=== PATIENT | female | born 1985 | race Caucasian/White ===

== ENCOUNTER 2017-01-22 06:38 | Inpatient (IN) | payer MEDICAID ==
[2017-01-22] MEDS ORDERED: PENICILLIN G POTASSIUM 5,000,000 UNIT in DEXTROSE 5%-WATER 100 ML IV ONE (07:02)
[2017-01-22] MEDS ORDERED: PENICILLIN G-K 5 MILLION UNIT VIAL ONE ×2 (07:03→10:40)
[2017-01-22 07:32] LABS: ABSOLUTE BASOPHILS # (AUTO) 0.1 10^3/uL (0.0-0.2); ABSOLUTE EOSINOPHILS # (AUTO) 0.1 10^3/uL (0.0-0.6); ABSOLUTE LYMPHOCYTES (AUTO) 1.4 10^3/uL (0.5-4.7); ABSOLUTE MONOCYTES (AUTO) 0.5 10^3/uL (0.1-1.4); ABSOLUTE NEUT (AUTO) 8.8 10^3/uL (1.7-8.2); BASOPHILS % (AUTO) 0.8 % (0-2); EOSINOPHILS % (AUTO) 0.9 % (0-6); HEMATOCRIT 35.7 % (36.0-47.0); HEMOGLOBIN 11.9 g/dL (12.0-15.5); MEAN CORPUSCULAR HEMOGLOBIN 29.3 pg (27.0-33.4); MEAN CORPUSCULAR HGB CONC 33.2 g/dL (32.0-36.0); MEAN CORPUSCULAR VOLUME 88 fl (80-97); MONOCYTES % (AUTO) 4.3 % (3-13); RED BLOOD COUNT 4.05 10^6/uL (3.72-5.28); RED CELL DISTRIBUTION WIDTH 14.2 % (11.5-14.0); WHITE BLOOD COUNT 10.9 10^3/uL (4.0-10.5)
[2017-01-22] MEDS ORDERED: EPHEDRINE SULFATE INJ 50 MG/1 ML AMPULE ONE (07:33)
[2017-01-22] MEDS ORDERED: MISOPROSTOL 0.2 MG TABLET ONE (07:33)
[2017-01-22] MEDS ORDERED: LIDOCAINE 1% INJ-PF (10 MG/ML) 30 ML SDV ONE (07:34)
[2017-01-22] MEDS ORDERED: FENTANYL/BUPIVACAINE/NS/PF 200 MCG/100 ML RTUINJ EPI ONE (07:34)
[2017-01-22] MEDS ORDERED: OXYTOCIN/NORMAL SALINE 20 UNIT/1,000 ML RTUINJ ONE (07:34)
[2017-01-22] MEDS ORDERED: BUPIVACAINE HCL 0.25 % INJ/PF (2.5 MG/1 ML) 30 ML VIAL ONE (07:34)
[2017-01-22 08:07] LABS: APPEARANCE,URINE CLOUDY; BILIRUBIN,URINE NEGATIVE (NEGATIVE); GLUCOSE, URINE NEGATIVE (NEGATIVE); KETONES,URINE NEGATIVE (NEGATIVE); LEUKOCYTE ESTERASE,URINE SMALL (NEGATIVE); NITRITE,URINE NEGATIVE (NEGATIVE); PROTEIN,URINE NEGATIVE (NEGATIVE); URINE SPECIFIC GRAVITY 1.012; UROBILINOGEN,URINE NEGATIVE mg/dL (<2.0)
[2017-01-22 08:22] LABS: URINE BARBITURATES SCREEN NEGATIVE; URINE METHADONE SCREEN NEGATIVE; URINE OPIATES LOW NEGATIVE; URINE PHENCYCLIDINE SCREEN NEGATIVE
[2017-01-22] MEDS ORDERED: BUPIVACAINE HCL 0.25 % INJ/PF (2.5 MG/1 ML) 30 ML VIAL INFIL ONE (09:01)
[2017-01-22] MEDS ORDERED: DIPHENHYDRAMINE HCL 50 MG/ML VIAL IV PRN (09:01)
[2017-01-22] MEDS ORDERED: BENZOIN/ALOE VERA/STORAX/TOLU TINCTURE 60 ML TP PRN (09:01)
[2017-01-22] MEDS ORDERED: RINGERS SOLUTION,LACTATED 1,000 ML IV PRN (09:01)
[2017-01-22] MEDS ORDERED: EPHEDRINE SULFATE INJ 50 MG/1 ML AMPULE IV ONE (09:01)
[2017-01-22] MEDS ORDERED: EPHEDRINE SULFATE INJ 50 MG/1 ML AMPULE IV PRN (09:01)
[2017-01-22] MEDS ORDERED: FENTANYL/BUPIVACAINE/NS/PF 200 MCG/100 ML RTUINJ EPI PRN (09:01)
[2017-01-22] MEDS: RINGERS SOLUTION,LACTATED 1,000 ML IV PRN ×4 (09:07→09:21)
[2017-01-22] MEDS ORDERED: PENICILLIN G POTASSIUM 2,500,000 UNIT in DEXTROSE 5%-WATER 50 ML IV SCH (11:00)
--- NOTE | 2017-01-22 12:16 | L&D Progress Notes ---
PROGRESS NOTES Datetime Report Generated by CPN: 01/22/2017 12:16 PROGRESS NOTE Impression: Normal Progression of Labor Procedures: Artificial ROM; Sterile Vag Exam Plan: Continue Present Management Informed Consent Obtained: Vaginal Delivery Vital Signs : Reviewed Comment: AROM, clear Anticiapte VAGINAL EXAM Dilatation: 9 Dilatation: 5 Effacement: 90 Effacement: 90 Station: 0 Station: -1 Contractions: 2-4 min Contractions: 3-5 MEMBRANES Membranes: Ruptured Membranes: Intact Amniotic Fluid Color: Clear FETUS A FHR - Baseline: 135 Monitoring: External US Variability: Moderate 6-25bpm Accelerations: 15X15 Decelerations: None FHR Category: Category I Estimated Weight (gm): 3800 Presentation: Vertex SIGNATURE SIGNATURE: [id number] Assignment: Tamiko Wilder MD Signature: with User ID: [email or web address] : with User ID: [email or web address]
[2017-01-22] MEDS ORDERED: DIPHENHYDRAMINE HCL 50 MG/ML VIAL ONE (12:54)
[2017-01-22] MEDS ORDERED: DIPH/PERTUSS(ACELL)/TETANUS VAC/PF 0.5 ML SYR (>=10YO) IM PRN (13:46)
[2017-01-22] MEDS ORDERED: MEASLES,MUMPS&RUBELLA VACC/PF 0.5 ML VIAL SUBCUT PRN (13:46)
[2017-01-22] MEDS ORDERED: ACETAMINOPHEN WITH CODEINE #3 TABLET PO PRN (13:46)
[2017-01-22] MEDS ORDERED: DIBUCAINE 1% OINTMENT 28 GM TP PRN (13:46)
[2017-01-22] MEDS ORDERED: BENZOCAINE/MENTHOL AEROSOL SPRAY 56 ML TOP PRN (13:46)
[2017-01-22] MEDS ORDERED: ZOLPIDEM TARTRATE 5 MG TABLET PO PRN (13:46)
[2017-01-22] MEDS ORDERED: OXYTOCIN/NORMAL SALINE 20 UNIT/1,000 ML RTUINJ IV PRN (13:46)
--- NOTE | 2017-01-22 15:55 | Admission Physical ---
Datetime Report Generated by CPN: 01/22/2017 15:55 CURRENT ADMISSION Hx Assessment: The History has been Reviewed and is Current Chief Complaint: Uterine Contractions Indication for Induction: Not Applicable Admit Plan: Admit to Unit; Initiate Labor Protocol ALLERGIES Medication Allergies: No Medication Allergies: No Known Allergies (01/22/2017) Medication Allergies: No Known Allergies (03/01/2016) Latex: No Latex Allergies Food Allergies: none Environmental Allergies: none OBSTETRICAL HISTORY EDC: 01/30/2017 00:00 : 4 Para: 3 Term: 3 : 0 SAB: 0 IAB: 0 Ectopic: 0 Livin Cesareans: 0 VBACs: 0 Multiple Births: 0 Gestational Diabetes: No Rh Sensitization: No Incompetent Cervix: No CHRIS: No Infertility: No ART Treatment: No Uterine Anomaly: No IUGR: No Hx Previous C/S: No Macrosomia: No Hx Loss/Stillborn: No PIH: No Hx : No Placenta Previa/Abruption: No Depression/PP Depression: No PTL/PROM: No Post Hemorrhage: No Current Procedures: Ultrasound; NST Obstetrical History Comments: G1: 2005 female G2: 2007 female G3: 2015 male G4: Current SEE RECORDS Alcohol: No Marijuana : No Cocaine: No Other Illicit Drugs: No Cigarettes: Current Everyday Smoker. [id number] Cigarette Frequency: > 10 per day Cigarette Comments: 1 ppd MEDICAL HISTORY Diabetes: No Blood Transfusion: No Pulmonary Disease (Asthma, TB): No Breast Disease: No Hypertension: No Insurance Operations Rep Surgery: No Heart Disease: No Hosp/Surgery: Yes Autoimmune Disorder: No Anesthetic Complications: No Kidney Disease: No Abnormal Pap Smear: No Neuro/Epilepsy: No Psychiatric Disorders: No Other Medical Diseases: No Hepatitis/Liver Disease: No Significant Family History: No Varicosities/Phlebitis: No Trauma/Violence : No Thyroid Dysfunction: No Medical History Comments: childbirth INFECTIOUS HISTORY Gonorrhea: No Genital Herpes: No Chlamydia: No Tuberculosis: No Syphilis: No Hepatitis: No HIV/AIDS Exposure: No Rash or Viral Illness: No HPV: No PHYSICAL EXAM General: Normal HEENT: Normal Neurologic: Normal Thyroid: Deferred Heart: Normal Lungs: Normal Breast: Normal Back: Normal Abdomen: Normal Genitourinary Exam: Normal Extremities: Normal DTRs: Normal Pelvic Type: Adequate Physical Exam Comments: pelvis proven 8lbs 1 oz Vital Signs: Reviewed VAGINAL EXAM Dilatation: 9 Dilatation: 5 Effacement: 90 Effacement: 90 Station: 0 Station: -1 Contraction Comments: 2-4 min Contraction Comments: 3-5 MEMBRANES Membranes: Ruptured Membranes: Intact Amniotic Fluid Color: Clear FETUS A EGA: 38.6 Monitoring: External US FHR- Baseline: 150 Variability: Moderate 6-25bpm Accelerations: 15X15 Decelerations: None FHR Category: Category I Estimated Weight (gm): 3800 Presentation: Vertex Admit Comment: Pt presents in labor, SVE as above GBS +, pnc limited care, smoker, closely spaced pregnancies. Admit Anticipate pt may have epidural prn PLANS FOR LABOR AND DELIVERY Labor and Delivery: None Pain Management: Epidural Feeding Preference: Breast Circumcision: N/A INFORMED CONSENT Informed Consent Obtained: Vaginal Delivery Assignment: Tamiko Wilder MD Signature: with User ID: [email or web address] : with User ID: [email or web address]
[2017-01-22] MEDS: IBUPROFEN 800 MG TABLET PO SCH ×2 (17:09→21:18)
[2017-01-22] MEDS: FERROUS SULFATE 325 MG TABLET PO SCH (17:17)
[2017-01-22] MEDS ORDERED: DOCUSATE SODIUM 100 MG CAPSULE PO SCH (18:00)
--- NOTE | 2017-01-22 18:34 | Delivery Summary ---
Del Sum A-C Datetime Report Generated by CPN: 01/22/2017 18:34 DELIVERY PERSONNEL DELIVERY PERSONNEL: [id number] Delivery Doctor:: Joyce Garcias CNM Nurse Analyst [employer] Certified:: Joyce Garcias CNM Labor and Delivery Nurse:: Deep Fowler RNdigital asset specialist Nurse:: SHIN Pinon Dining Room Host/Hostess/DIRECTOR DIVERSITY: Cally ChavezCORBY chowdary II MATERNAL INFORMATION Delivery Anesthesia: Epidural Medications After Delivery: Pitocin Bolus-Please Comment; Pitocin Drip 20 Units/1000ml NSS Estimated Blood Loss (ml): 250 Maternal Complications: None Provider Comments: of vaiable female over intact perineum, head delivered, loose nuchal noted, reduced, shoulders and body delivered without difficulty. Infant with spontaneous cry and respirations to maternal abdomen, cord clamped X2, infant cut free after 2 min delay, spontaneous delivery of intact placenta, via avitia mechanism, appears intact 3 VC, hemostasis acheived with external fundal massage and IV pitocin, routine pp care, mother and infant in stable condition. LABOR SUMMARY EDC: 01/30/2017 00:00 No. Babies in Womb: 1 Attempted: No Labor Anesthesia: Epidural LABOR INFORMATION Reason for Induction: Not Applicable Onset of Labor: 01/22/2017 04:00 Complete Dilatation: 01/22/2017 13:16 Oxytocin: N/A Group B Beta Strep: Positive Antibiotics # of Doses: 2 Antibiotics Time of Last Dose: 1048 Name of Antibiotic Given: PCN G Steroids Given: None Reason Steroids Not Administered: Not Applicable MEMBRANES Membranes Rupture Method: Artificial Rupture of Membranes: 01/22/2017 12:27 Length of Rupture (hr): 0.93 Amniotic Fluid Color: Clear Amniotic Fluid Amount: Moderate Amniotic Fluid Odor: Normal STAGES OF LABOR Stage 1 hr: 9 Stage 1 min: 16 Stage 2 hr: 0 Stage 2 min: 7 Stage 3 hr: 0 Stage 3 min: 5 Total Time in Labor hr: 9 Total Time in Labor min: 28 VAGINAL DELIVERY Episiotomy: None Laceration Extension: N/A Laceration Type: None Laceration Repair: Not Applicable Laceration Repair Note: n/a Sponge Count Correct: N/A Sharps Count Correct: N/A CSECTION DELIVERY Primary Indication: N/A Secondary Indication: N/A CSection Incidence: N/A Labor: N/A Elective: N/A CSection Incision: N/A BABY A INFORMATION Delivery Date/Time: 01/22/2017 13:23 Method of Delivery: Vaginal Born in Route : No : N/A Forceps: N/A Vacuum Extraction: N/A Shoulder Dystocia : No PRESENTATION/POSITION BABY A Presentation: Cephalic Cephalic Presentation: Vertex Vertex Position: Right Occipital Anterior Breech Presentation: N/A PLACENTA INFORMATION BABY A Placenta Delivery Time : 01/22/2017 13:28 Placenta Method of Delivery: Spontaneous Placenta Status: Delivered SCORES BABY A Heart Rate 1 min: >100 bpm Resp Effort 1 min: Good Cry Reflex Irritability 1 min: Cough or Sneeze or Pulls Away Muscle Tone 1 min: Active Motion Color 1 min: Blue/Pale Resuscitation Effort 1 min: Tactile Stimulation SCORE 1 MIN: 8 Heart Rate 5 min: >100 bpm Resp Effort 5 min: Good Cry Reflex Irritability 5 min: Cough or Sneeze or Pulls Away Muscle Tone 5 min: Active Motion Color 5 min: Body Lasana, Extremities Blue Resuscitation Effort 5 min: N/A SCORE 5 MIN: 9 INFORMATION BABY A Gestational Age at Delivery: 38.6 Gestational Status: Early Term- 37- 38.6 Weeks Outcome : Liveborn Infant Condition : Stable Sex: Female IDENTIFICATION BABY A Verification Date/Time: 01/22/2017 14:05 ID Band Number: [id number] Mother's Name Verified: Yes RN Verifying : C Fowler RN Additional Verifying Personnel: D [facility] RNC WEIGHT/LENGTH BABY A Birthweight (gm): 3410 Weight (lb): 7 Weight (oz): 8 Infant Length (in): 19.50 Length (cm): 49.53 CORD INFORMATION BABY A No. Cord Vessels: 3 Nuchal Cord : Around Neck x1, Loose Cord Blood Taken: Yes-For Storage (Mom's Blood type +) Suction: None ASSESSMENT BABY A Infant Complications: None Physical Findings at Delivery: Within Normal Limits Respirations: Appears Normal Skin to Skin: Yes Jointer [employer]/ALS Called : No Care By: D. Bellevance Transferred To: Remains with Mother BABY B INFORMATION : N/A SIGNATURES Assignment: Tamiko Wilder MD Signature: with User ID: Marlene : with User ID: [email or web address]
[2017-01-22] MEDS: ACETAMINOPHEN WITH CODEINE #3 TABLET PO PRN (21:19)
[2017-01-23] MEDS: ACETAMINOPHEN WITH CODEINE #3 TABLET PO PRN ×4 (01:28→21:29)
[2017-01-23] MEDS: IBUPROFEN 800 MG TABLET PO SCH ×3 (05:19→21:28)
[2017-01-23 07:41] LABS: HEMATOCRIT 29.3 % (36.0-47.0); HEMOGLOBIN 10.4 g/dL (12.0-15.5); HGB HCT DIFFERENCE 1.9; MEAN CORPUSCULAR HEMOGLOBIN 30.7 pg (27.0-33.4); MEAN CORPUSCULAR HGB CONC 35.4 g/dL (32.0-36.0); MEAN CORPUSCULAR VOLUME 87 fl (80-97); RED BLOOD COUNT 3.38 10^6/uL (3.72-5.28); RED CELL DISTRIBUTION WIDTH 14.1 % (11.5-14.0); WHITE BLOOD COUNT 10.9 10^3/uL (4.0-10.5)
[2017-01-23] MEDS ORDERED: DIPHENHYDRAMINE HCL 25 MG CAPSULE ONE (10:05)
[2017-01-23] MEDS: SENNOSIDES/DOCUSATE 8.6-50 MG 1 EACH TABLET PO SCH (10:06)
[2017-01-23] MEDS: PRENATAL VITAMIN W-O CA NO5/FE FUMARATE/FA CAPSULE PO SCH (10:07)
[2017-01-23] MEDS: FERROUS SULFATE 325 MG TABLET PO SCH ×2 (10:07→18:40)
[2017-01-23] MEDS ORDERED: DIPHENHYDRAMINE HCL 25 MG CAPSULE PO PRN (10:14)
[2017-01-23] MEDS ORDERED: MEASLES,MUMPS&RUBELLA VACC/PF 0.5 ML VIAL SUBCUT PRN (10:30)
[2017-01-23] MEDS ORDERED: DIPH/PERTUSS(ACELL)/TETANUS VAC/PF 0.5 ML SYR (>=10YO) IM PRN (10:30)
--- NOTE | 2017-01-23 13:42 | PDOC PROGRESS REPORT ---
Subjective-OB Subjective: Post Delivery Day: 31 year old. Denies any needs at this time Physical Exam (OB) Vital Signs: Temp Pulse Resp BP Pulse Ox 97.5 F 81 14 99/68 L 96 01/23/17 07:38 01/23/17 07:38 01/23/17 07:38 01/23/17 07:38 01/23/17 07:38 Intake & Output 01/22/17 01/23/17 01/24/17 06:59 06:59 06:59 Weight 81.35 kg - Lochia Lochia Amount: Scant < 10 ml Lochia Color: Rubra/Red - Abdomen Description: Soft, Round Hernia Present: No Bowel Sounds: Normoactive Flatus Presence: Present Stool: No Fundal Description: Firm, Midline Fundal Height: u/u - u/2 Objective-Diagnostic Laboratory: 01/23/17 07:12 01/23/17 07:12 WBC 10.9 H RBC 3.38 L Hgb 10.4 L Hct 29.3 L MCV 87 MCH 30.7 MCHC 35.4 RDW 14.1 H Plt Count 178
[2017-01-24] MEDS: IBUPROFEN 800 MG TABLET PO SCH ×2 (05:20→13:14)
[2017-01-24] MEDS: ACETAMINOPHEN WITH CODEINE #3 TABLET PO PRN (08:36)
[2017-01-24 08:59] VITALS: BP 125/83
--- NOTE | 2017-01-24 09:27 | PDOC DISCHARGE SUMMARY ---
Final Diagnosis Discharge Date: 01/24/17 - Final Diagnosis (1) Closely-spaced pregnancies Is this a current diagnosis for this admission?: Yes (2) Late onset care Is this a current diagnosis for this admission?: Yes (3) Positive GBS test Is this a current diagnosis for this admission?: Yes (4) Vaginal delivery Is this a current diagnosis for this admission?: Yes Discharge Data - Discharge Medication Home Medications: Pnv W-O Ca No5/Fe Fumarate/FA [-U Multiple Vitamin Capsule] 1 cap PO DAILY #0 capsule 03/03/16 Cyclobenzaprine HCl [Flexeril 10 mg Tablet] 1 tab PO PRN PRN 01/22/17 Reason(s) for Admission: Onset of Labor Procedures: NST Intrapartum Procedure(s): Spontaneous Vaginal Delivery - Diagnosis Test Laboratory: Temp Pulse Resp BP Pulse Ox 97.7 F 52 L 16 125/83 100 01/24/17 08:01 01/24/17 08:01 01/24/17 08:01 01/24/17 08:01 01/24/17 08:01 01/22/17 01/22/17 01/23/17 07:00 07:20 07:12 RBC 4.05 3.38 L Hgb 11.9 L 10.4 L Hct 35.7 L 29.3 L Urine Opiates Screen NEGATIVE - Discharge information/Instructions Discharge Activity: Balance Activity w/Rest, Pelvic Rest Discharge Diet: Regular Disposition: HOME, SELF-CARE Follow up with: [facility] in: 4, Weeks
[2017-01-24] MEDS: PRENATAL VITAMIN W-O CA NO5/FE FUMARATE/FA CAPSULE PO SCH (09:32)
[2017-01-24] MEDS: FERROUS SULFATE 325 MG TABLET PO SCH (09:32)
[2017-01-24] MEDS: SENNOSIDES/DOCUSATE 8.6-50 MG 1 EACH TABLET PO SCH (09:32)
[2017-01-24] MEDS ORDERED: METHYLERGONOVINE MALEATE 0.2 MG TABLET PO ONE (11:45)
[2017-01-24] MEDS ORDERED: METHYLERGONOVINE MALEATE 0.2 MG TABLET PO SCH (12:00)
== END 2017-01-24 14:27 | disposition home or self-care (01) | DRG 775 ==
LOC: LC 06:38 → LR 07:04 → 2S 15:53
PROVIDERS: ADMIT Obstetrics & Gynecology; ATTEND Obstetrics & Gynecology
PROC: 10E0XZZ Delivery of Products of Conception, External Approach (ICD-10-PCS; principal; 2017-01-22)
PROC: 10907ZC Drainage of Amniotic Fluid, Therapeutic from Products of Conception, Via Natural or Artificial Opening (ICD-10-PCS; 2017-01-22)
DX: O99.824 Streptococcus B carrier state complicating childbirth (principal); Z3A.38 38 weeks gestation of pregnancy; Z37.0 Single live birth; O99.334 Smoking (tobacco) complicating childbirth; F17.210 Nicotine dependence, cigarettes, uncomplicated
CPT/HCPCS: 36415; 80307; 81005; 85025; 85027; 86592; 86850; 86900; 86901; J1200; J2540; J2590; J3490

== ENCOUNTER 2017-05-26 06:56 | Day surgery (SDC) | payer MEDICAID ==
[~2017-05-26 06:56] MED LIST: BUPIVACAINE HCL 0.25 % INJ/PF (2.5 MG/1 ML) 30 ML VIAL ONE
[2017-05-26 07:44] LABS: HEMATOCRIT 38.8 % (36.0-47.0); HEMOGLOBIN 13.1 g/dL (12.0-15.5); MEAN CORPUSCULAR HEMOGLOBIN 29.7 pg (27.0-33.4); MEAN CORPUSCULAR HGB CONC 33.9 g/dL (32.0-36.0); MEAN CORPUSCULAR VOLUME 88 fl (80-97); PLATELET COUNT 192 10^3/uL (150-450); RED BLOOD COUNT 4.42 10^6/uL (3.72-5.28); RED CELL DISTRIBUTION WIDTH 13.9 % (11.5-14.0); WHITE BLOOD COUNT 7.3 10^3/uL (4.0-10.5)
[2017-05-26] MEDS ORDERED: FENTANYL CITRATE INJ/PF 100 MCG/2 ML AMPUL ONE (08:21)
[2017-05-26] MEDS ORDERED: PROPOFOL INJ 200 MG/20 ML VIAL IV ONE (08:21)
[2017-05-26] MEDS ORDERED: MIDAZOLAM 2 MG/2 ML INJ ONE (08:21)
[2017-05-26] MEDS ORDERED: ACETAMINOPHEN 100 ML IV ONE (08:22)
[2017-05-26] MEDS ORDERED: PROMETHAZINE HCL INJ 25 MG/1 ML VIAL IV PRN (09:00)
[2017-05-26] MEDS ORDERED: MORPHINE SULFATE 10 MG/ML INJ IV PRN (09:00)
[2017-05-26] MEDS ORDERED: FENTANYL CITRATE INJ/PF 100 MCG/2 ML AMPUL IV PRN ×3 (09:00)
[2017-05-26] MEDS ORDERED: DIPHENHYDRAMINE HCL 50 MG/ML VIAL IV PRN (09:00)
[2017-05-26] MEDS: FENTANYL CITRATE INJ/PF 100 MCG/2 ML AMPUL ONE ×2 (09:20→09:25)
--- NOTE | 2017-05-26 09:33 | OPERATIVE REPORT E ---
Operative Report NAME: ERIN MALDONADO : 1985 AGE: 31Y DATE OF SURGERY: 05/26/2017 ROOM: PREOPERATIVE DIAGNOSIS: Desires sterilization. POSTOPERATIVE DIAGNOSIS: Desires sterilization. PROCEDURE: Bilateral tubal occlusion using Filshie clips. SURGEON: Carlos BARRERA M.D. ANESTHESIA: General. ESTIMATED BLOOD LOSS: Negligible. TISSUE REMOVED OR ALTERED: No tissue was removed. PROCEDURE: Patient was placed in a dorsal lithotomy position, prepped and draped in the usual sterile fashion. A speculum was placed. The cervix was visualized and grasped with a single-tooth tenaculum. Hulka tenaculum was placed and single-tooth tenaculum was removed. The bladder was drained with a catheter. Midline subumbilical incision was made. Trocar was introduced with insufflation of the abdomen and introduction of the laparoscope with visualization of the tubes, uterus and ovaries. Right fallopian tube was banded in the mid portion with a good knuckle of tissue being noted. This was repeated on the left, again with a good purchase of tissue being noted. Laparoscope was removed and the abdomen deflated. Trocar and sleeves were removed. The incision was closed with 4-0 Vicryl subcuticular stitch. All counts correct. She tolerated it well and was taken to the recovery room in good condition. DICTATING PHYSICIAN: Carlos BARRERA M.D. [id number] PHY#: [id number] ID: [id number] JOB#: [id number] ACCT: [id number] cc:Carlos BARRERA M.D. >
[2017-05-26] MEDS: HYDROMORPHONE HCL INJ/PF 2 MG/ML AMPULE ONE ×2 (09:35→09:40)
[2017-05-26] MEDS ORDERED: OXYCODONE-ACETAMINOPHEN 5-325 MG TABLET ONE (10:27)
[2017-05-26] MEDS ORDERED: OXYCODONE-ACETAMINOPHEN 5-325 MG TABLET PO PRN (10:37)
[2017-05-26] MEDS ORDERED: ONDANSETRON 4 MG TAB.RAPDIS SL PRN (10:37)
[2017-05-26] MEDS ORDERED: LIDOCAINE 2% INJ-PF (20 MG/ML) 2 ML AMPUL ONE (12:09)
[2017-05-26] MEDS ORDERED: DEXAMETHASONE SOD PHOSPHATE INJ 4 MG/1 ML VIAL ONE (12:09)
[2017-05-26] MEDS ORDERED: KETOROLAC TROMETHAMINE 60 MG/2 ML SDV ONE (12:09)
[2017-05-26] MEDS ORDERED: SUCCINYLCHOLINE CHLORIDE INJ 200 MG/10 ML VIAL ONE (12:09)
[2017-05-26] MEDS ORDERED: ONDANSETRON HCL INJ/PF 4 MG/2 ML SDV ONE (12:09)
[2017-05-26] MEDS ORDERED: GLYCOPYRROLATE INJ 0.4 MG/2 ML VIAL ONE (12:09)
[2017-05-26 12:42] VITALS: BP 163/83
[2017-05-26] MEDS ORDERED: IBUPROFEN 800 MG TABLET PO SCH (14:00)
== END 2017-05-26 11:15 | disposition home or self-care (01) ==
LOC: OROUT 06:56
PROVIDERS: ATTEND Obstetrics & Gynecology Gynecology
PROC: 0UL74CZ Occlusion of Bilateral Fallopian Tubes with Extraluminal Device, Percutaneous Endoscopic Approach (ICD-10-PCS; principal; 2017-05-26 08:45)
DX: Z30.2 Encounter for sterilization (principal); F17.210 Nicotine dependence, cigarettes, uncomplicated; Z91.040 Latex allergy status
CPT/HCPCS: 36415; 84703; 85027; 58671; J2250; J1100; J1885; J3010; J3490 ×2; J1170; J0330; J2405; S0020; J2704; J0131